=== PATIENT | male | born 1970 | race Caucasian/White ===

== ENCOUNTER → 2017-11-26 14:30 | Outpatient (REF) | payer OTHER, SELFPAY ==
[2017-11-26 17:28] LABS: Amphetamine/Metha Screen,Urine Negative ng/mL (<1000); Barbiturates Screen,Urine Negative ng/mL (<200); Benzodiazepines Screen,Urine Positive ng/mL (200); Cannabinoid Screen,Urine Negative ng/mL (<50); Cocaine Screen,Urine Negative ng/g (<300); Methadone Screen,Urine Negative ng/mL (<300); Opiate Screen,Urine Negative ng/mL (<300); Phencyclidine Screen,Urine Negative ng/mL (<25)
== END ==
LOC: LAB 14:30
PROVIDERS: Visit Provider Emergency Medicine
DX: Z79.899 Other long term (current) drug therapy (principal)
CPT/HCPCS: 80305

== ENCOUNTER → 2018-02-22 15:15 | Outpatient (REF) | payer OTHER, SELFPAY ==
[2018-02-22 19:32] LABS: Amphetamine/Metha Screen,Urine Negative ng/mL (<1000); Barbiturates Screen,Urine Negative ng/mL (<200); Benzodiazepines Screen,Urine Negative ng/mL (200); Cannabinoid Screen,Urine Negative ng/mL (<50); Cocaine Screen,Urine Negative ng/g (<300); Methadone Screen,Urine Negative ng/mL (<300); Opiate Screen,Urine Negative ng/mL (<300); Phencyclidine Screen,Urine Negative ng/mL (<25)
== END ==
LOC: LAB 15:15
PROVIDERS: Visit Provider Emergency Medicine
DX: Z79.899 Other long term (current) drug therapy (principal)
CPT/HCPCS: 80305

== ENCOUNTER → 2018-05-20 16:03 | Outpatient (REF) | payer OTHER, SELFPAY ==
[2018-05-20 17:04] LABS: Basophils # 0.1 K/mm3 (0-0.2); Basophils % 1.1 % (0.1-2.0); Eosinophils # 0.2 K/mm3 (0.0-0.4); Eosinophils % 2.3 % (0.1-12.0); Hematocrit 51.9 % (42.0-52.0); Hemoglobin 16.8 g/dL (14.1-18.0); Lymphocytes # 2.9 K/mm3 (0.7-4.5); Mean Corpuscular HGB Conc 32.3 g/dL (31.8-35.4); Mean Corpuscular Hemoglobin 30.3 pg (27.0-31.2); Mean Corpuscular Volume 93.7 fl (80-94); Mean Platelet Volume 7.9 fl (7.4-10.4); Monocytes # 0.4 K/mm3 (0.1-1.0); Monocytes % 4.3 % (1.7-9.3); Neutrophils # 5.3 K/mm3 (1.8-7.8); Neutrophils % 59.3 % (37.0-80.0); Platelet Count 239 K/mm3 (142-424); Red Blood Count 5.54 M/mm3 (4.60-6.20); Red Cell Distribution Width 12.2 % (11.5-17.5); White Blood Count 8.9 K/mm3 (4.8-10.8)
[2018-05-20 17:37] LABS: Amphetamine/Metha Screen,Urine Negative ng/mL (<1000); Barbiturates Screen,Urine Negative ng/mL (<200); Benzodiazepines Screen,Urine Positive ng/mL (<200); Cannabinoid Screen,Urine Negative ng/mL (<50); Cocaine Screen,Urine Negative ng/mL (<300); Methadone Screen,Urine Negative ng/mL (<300); Opiate Screen,Urine Negative ng/mL (<300); Phencyclidine Screen,Urine Negative ng/mL (<25)
[2018-05-20 17:52] LABS: Alanine Aminotransferase 88 U/L (12-78); Albumin Level 4.4 gm/dL (3.4-5.0); Albumin/Globulin Ratio 1.1 (1.1-1.8); Alkaline Phosphatase 113 U/L (46-116); Anion Gap 16.3 mEq/L (5-15); Aspartate Amino Transferase 40 U/L (15-37); Bilirubin,Total 0.4 mg/dL (0.2-1.0); Blood Urea Nitrogen 14 mg/dL (7-18); Calcium 9.6 mg/dL (8.5-10.1); Carbon Dioxide 24 mmol/L (21.0-32.0); Chloride 99 mmol/L (98-107); Creatinine,Serum 1.22 mg/dL (0.70-1.30); Estimated Glomerular Filt Rate 64 ml/min (>60); Free T4 (Free Thyroxine) 0.82 ng/dl (0.76-1.46); GFR (African American) 77 ML/MIN (>60); Globulin 4.1 gm/dl (1.3-3.2); Potassium 4.3 mmoL/L (3.5-5.1); Sodium 135 mmol/L (136-145); Thyroid Stimulating Hormone 25.17 uIU/ml (0.358-3.740); Total Protein,Serum 8.5 gm/dL (6.4-8.2)
[2018-05-20 17:58] LABS: Glucose 416 mg/dL (74-106)
[2018-05-24 19:21] LABS: PSA, Free 0.15 ng/mL; Prostate Specific Ag 0.6 ng/mL (0.0-4.0)
== END ==
LOC: LAB 16:03
PROVIDERS: Visit Provider Emergency Medicine
DX: E03.9 Hypothyroidism, unspecified (principal); I10 Essential (primary) hypertension; Z79.899 Other long term (current) drug therapy; R68.89 Other general symptoms and signs
CPT/HCPCS: 80053; 80305; 84153; 84154; 84439; 84443; 85025

== ENCOUNTER → 2018-05-30 09:35 | Outpatient (CLI) | payer OTHER, SELFPAY ==
[2018-05-30 10:00] LABS: Glucose,Fasting 483 mg/dL (60-105)
[2018-05-30 10:25] LABS: Hemoglobin A1C 9.8 % (0.0-7.0)
== END ==
PROVIDERS: Visit Provider Physician Assistant
DX: R73.9 Hyperglycemia, unspecified (principal)
CPT/HCPCS: 36415; 82947; 83036

== ENCOUNTER → 2018-08-10 13:38 | Outpatient (REF) | payer OTHER, SELFPAY ==
[2018-08-10 18:19] LABS: Basophils # 0.1 K/mm3 (0-0.2); Basophils % 0.5 % (0.1-2.0); Eosinophils # 0.5 K/mm3 (0.0-0.4); Eosinophils % 5.4 % (0.1-12.0); Hematocrit 46.6 % (42.0-52.0); Hemoglobin 14.8 g/dL (14.1-18.0); Lymphocytes # 2.2 K/mm3 (0.7-4.5); Lymphocytes % 23.5 K/mm3 (10-50); Mean Corpuscular HGB Conc 31.8 g/dL (31.8-35.4); Mean Corpuscular Hemoglobin 30.2 pg (27.0-31.2); Mean Corpuscular Volume 94.9 fl (80-94); Mean Platelet Volume 8.8 fl (7.4-10.4); Monocytes # 0.6 K/mm3 (0.1-1.0); Neutrophils % 64.6 % (37.0-80.0); Platelet Count 305 K/mm3 (142-424); Red Blood Count 4.91 M/mm3 (4.60-6.20); Red Cell Distribution Width 13.2 % (11.5-17.5); White Blood Count 9.4 K/mm3 (4.8-10.8)
[2018-08-10 18:36] LABS: Alanine Aminotransferase 117 U/L (12-78); Albumin Level 4.1 gm/dL (3.4-5.0); Albumin/Globulin Ratio 1.1 (1.1-1.8); Alkaline Phosphatase 91 U/L (46-116); Anion Gap 15.2 mEq/L (5-15); Aspartate Amino Transferase 60 U/L (15-37); Bilirubin,Total 0.5 mg/dL (0.2-1.0); Blood Urea Nitrogen 8 mg/dL (7-18); Calcium 9.5 mg/dL (8.5-10.1); Carbon Dioxide 25 mmol/L (21.0-32.0); Chloride 104 mmol/L (98-107); Chol/HDL Ratio 5.9 (1-3.5); Cholesterol 223 mg/dL (140-200); Creatinine,Serum 0.85 mg/dL (0.70-1.30); Estimated Glomerular Filt Rate 97 ml/min (>60); Free T4 (Free Thyroxine) 1.07 ng/dl (0.76-1.46); GFR (African American) 117 ML/MIN (>60); Globulin 3.8 gm/dl (1.3-3.2); Glucose 175 mg/dL (74-106); HDL Cholesterol 38 mg/dL (27-67); LDL Cholesterol 165 mg/dL (0-130); Potassium 4.2 mmoL/L (3.5-5.1); Sodium 140 mmol/L (136-145); Thyroid Stimulating Hormone 3.38 uIU/ml (0.358-3.740); Total Protein,Serum 7.9 gm/dL (6.4-8.2); Triglycerides 102 mg/dL (30-200); VLDL Cholesterol 20 mg/dL (0-40)
[2018-08-10 18:38] LABS: Amphetamine/Metha Screen,Urine Negative ng/mL (<1000); Barbiturates Screen,Urine Negative ng/mL (<200); Benzodiazepines Screen,Urine Positive ng/mL (<200); Cannabinoid Screen,Urine Negative ng/mL (<50); Cocaine Screen,Urine Negative ng/mL (<300); Methadone Screen,Urine Negative ng/mL (<300); Opiate Screen,Urine Negative ng/mL (<300); Phencyclidine Screen,Urine Negative ng/mL (<25)
[2018-08-10 19:07] LABS: Hemoglobin A1C 10.1 % (0.0-7.0)
== END ==
LOC: LAB 13:38
PROVIDERS: Visit Provider Emergency Medicine
DX: Z79.899 Other long term (current) drug therapy (principal); I10 Essential (primary) hypertension
CPT/HCPCS: 80053; 80061; 80305; 83036; 84439; 84443; 85025

== ENCOUNTER → 2018-08-12 13:44 | Outpatient (CLI) | payer OTHER, SELFPAY ==
--- NOTE | 2018-08-12 13:47 | XR_ITS ---
XR shoulder LT min 2V HISTORY: ITS.REASON: shoulder pain ORDERING PHYSICIAN: Angel Luis Polo MD PATIENT AGE: 48 years Comparison: None FINDINGS: No fracture or dislocation. No lytic or blastic change. There is normal mineralization. The joint spaces are well-preserved. No significant degenerative/arthritic changes. No erosive changes evident. IMPRESSION: Negative, no acute finding
== END ==
PROVIDERS: PCP Emergency Medicine; Visit Provider Emergency Medicine
DX: M25.512 Pain in left shoulder (principal)
CPT/HCPCS: 73030

== ENCOUNTER → 2020-01-04 16:38 | Outpatient (CLI) | payer OTHER, SELFPAY ==
[2020-01-04 16:56] LABS: Basophils # 0.1 K/mm3 (0-0.2); Basophils % 1.3 % (0.1-2.0); Eosinophils # 0.2 K/mm3 (0.0-0.4); Eosinophils % 2.1 % (0.1-12.0); Hematocrit 46.7 % (42.0-52.0); Hemoglobin 15.6 g/dL (14.1-18.0); Lymphocytes # 2.9 K/mm3 (0.7-4.5); Lymphocytes % 26.2 % (10-50); Mean Corpuscular HGB Conc 33.4 g/dL (31.8-35.4); Mean Corpuscular Hemoglobin 30.4 pg (27.0-31.2); Mean Corpuscular Volume 91.1 fl (80-94); Mean Platelet Volume 8.8 fl (7.4-10.4); Monocytes # 0.6 K/mm3 (0.1-1.0); Monocytes % 5.2 % (1.7-9.3); Neutrophils # 7.3 K/mm3 (1.8-7.8); Neutrophils % 65.2 % (37.0-80.0); Platelet Count 320 K/mm3 (142-424); Red Blood Count 5.12 M/mm3 (4.60-6.20); Red Cell Distribution Width 12.3 % (11.5-17.5); White Blood Count 11.1 K/mm3 (4.8-10.8)
[2020-01-04 17:10] LABS: Chloride 103 mmol/L (98-107)
[2020-01-04 17:11] LABS: Potassium 4.5 mmoL/L (3.5-5.1); Sodium 138 mmol/L (136-145)
[2020-01-04 17:13] LABS: Alanine Aminotransferase 52 U/L (12-78); Anion Gap 18.5 mEq/L (5-15); Aspartate Amino Transferase 35 U/L (17-59); Blood Urea Nitrogen 23 mg/dl (9-20); Carbon Dioxide 21 mmol/L (22.0-30.0); Cholesterol 154 mg/dl (140-200); Estimated Glomerular Filt Rate 103 ml/min (>60); GFR (African American) 125 ML/MIN (>60); Triglycerides 148 mg/dl (30-150); VLDL Cholesterol 30 mg/dL (0-40)
[2020-01-04 17:14] LABS: Albumin Level 5.1 g/dl (3.5-5.0); Albumin/Globulin Ratio 1.5 (1.1-1.8); Alkaline Phosphatase 86 U/L (38-126); Bilirubin,Total 0.3 mg/dl (0.2-1.3); Calcium 10.1 mg/dl (8.4-10.2); Globulin 3.4 g/dL (1.3-3.2); Glucose 309 mg/dl (74-100); HDL Cholesterol 31 mg/dl (40-60); Total Protein,Serum 8.5 g/dl (6.3-8.2)
[2020-01-04 17:28] LABS: T4 (Thyroxine) 9.1 ug/dl (5.53-11.0)
[2020-01-04 17:32] LABS: Direct LDL Cholesterol 100.01 mg/dL (100-129)
[2020-01-06 08:31] LABS: Vitamin D 25 Hydroxy 16.3 ng/mL (30.0-100.0)
[2020-01-06 10:20] LABS: Creatinine, Urine 78.2 mg/dL (Not Estab.)
[2020-01-06 14:22] LABS: C-Peptide 3.8 ng/mL (1.1-4.4)
== END ==
PROVIDERS: Visit Provider Nurse Practitioner Family
DX: E11.9 Type 2 diabetes mellitus without complications (principal); Z79.4 Long term (current) use of insulin; E55.9 Vitamin D deficiency, unspecified; Z79.899 Other long term (current) drug therapy
CPT/HCPCS: 80053; 80061; 82043; 82570; 82652; 83036; 84436; 84443; 84681; 85025

== ENCOUNTER → 2020-03-18 06:45 | Outpatient (CLI) | payer OTHER, SELFPAY ==
--- NOTE | 2020-03-18 06:47 | CA_ITS ---
APPROVED REPORT EXAM: Comprehensive 2D, Doppler, and color-flow Echocardiogram Furnace Installer: Debbie Farias RVT Ht: 6 ft 0 in Wt: 221lbs BSA: 2.22 BP: 160/90 mmHg Indications: MURMUR,SOA,CP,SMOKER,HEP C,TACHYCARDIA,SOA,HTN,HLD 2D Dimensions LVOT 1.55 cm (M/F) 1.5-2.5 M-Mode Dimensions RVDd 2.74 cm (0.9-2.6) LVDd 4.71 cm (3.5-5.7) LVDs 3.23 cm (3.5-5.7) IVSd 0.91 cm (0.6-1.1) PWd 0.53 cm (0.6-1.1) EF (Teich) 59.30% FS 31.40% EDV (Teich) 102.90 mL ESV (Teich) 41.90 mL LV Diastology E/A Ratio 0.69 Aortic Valve LVOT Max 228.00 (70-110 cm/s) LVOT VTI 48.97 cm Mitral Valve MV A Velocity 100.00 (40-130 cm/s) Left Ventricle Left atrium is mildly enlarged, left ventricle is normal size, mild concentric left ventricular hypertrophy, visually estimated ejection fraction 55% with no regional wall motion abnormality. Grade 1 diastolic dysfunction seen without tissue Doppler evidence of raise left atrial pressure. Right Ventricle Right atrium and right ventricular normal size and contractility. Aortic Valve Aortic valve is thickened and calcified with reduction in leaflet mobility, the mean gradient across valve is 18 mmHg, valve area 1.5 cm??? represents mild aortic stenosis, there is no significant aortic insufficiency. Mitral Valve Mitral valve leaflets are minimally thickened, there is mild mitral regurgitation. Tricuspid Valve Tricuspid valve is grossly normal, there is mild tricuspid regurgitation, tricuspid regurgitation jet velocity is inadequate for calculation of the right ventricular systolic pressure. Pulmonic Valve Pulmonic valve is poorly visualized. Great Vessels Aortic root is normal size. Pericardium No significant pericardial effusion noted. Conclusion 1. Mildly enlarged left atrium, normal left ventricular size, mild concentric left ventricular hypertrophy, visually estimated ejection fraction 55% with no regional wall motion abnormality, grade 1 diastolic dysfunction seen without tissue Doppler evidence of raise left atrial pressure. 2. Thickened and calcified aortic valve with mean gradient across valve of 18 mmHg, valve area of 1.5 centimeters square represents mild aortic stenosis, there is no significant aortic insufficiency. 3. Mild mitral and tricuspid regurgitation. 4. No significant pericardial effusion noted. Electronically signed by : Tyler Lopez, 03/18/2020 19:54:21
--- NOTE | 2020-03-18 06:47 | CA_ITS ---
APPROVED REPORT Exam: Pharmacologic Technologist: Sondra Overton Ht: 6 ft 0 in Wt: 210 lbs BSA: 2.18 m2 HR: 82 bpm BP: 113/74 mmHg Indications: Heart murmur,Chest pain, Shortness of Breath Medical History Medications: Lisinopril,,,,, Levothyroxine,,,,, Aspirin,,,,, Vitamin D3,,,,, Atorvastatin,,,,, INSULIN,,,,, BisOPROLOL,,,,, Ergocalciferol,,,,, Stress Test Details Test: LEXISCAN HR Resting HR: 85 bpm Max Heart Rate (APMHR): 172 bpm Max HR Achieved: 105 bpm Target HR (85% APMHR): 146 bpm % of APMHR: 61 Recovery HR: 86 bpm BP Resting BP: 113.0/74.0 mmHg Max BP: 137.0/90.0 mmHg Recovery BP: 137.0/90.0 mmHg ECG Clinical Exercise duration: 04:00 min Highest Stage Achieved: Stress ECG Conclusion Resting ECG: Sinus rhythm Lexiscan portion completed. Patient complained of shortness of breath during peak infusion. Symptoms: Shortness of breath during peak infusion. Resolved in recovery. No chest pain. Arrhythmias/Ectopy: Occasional PVC ST-T Changes: Less than 1.[address] depression. Conclusion: Images to follow. Test Summary . . Myoview Injected . . . Stop exercise at 04:00 . . . . . Electronically signed by : Tyler Lopez, 03/18/2020 20:17:50
--- NOTE | 2020-03-18 06:47 | NM_ITS ---
APPROVED REPORT Exam: Nuclear Stress Test Indication: SOB, HTN, DM, High cholesterol, Tobacco use, Family history Patient Location: Outpatient Stress Tech: Sondra Overton [place] Tech:Kenna Aguilera, ARRT, RT (R)(N) Ht: 6 ft 0 in Wt: 210 lbs HR: 82 bpm BP: 113/74 mmHg BSA: 2.18 m2 History: SOB, HTN, DM, High cholesterol, Tobacco use, Family history Procedure: Patient received a 0.4 mg of intravenous Lexiscan, resting heart rate 82 bpm, resting blood pressure 113/74 mmHg, with Lexiscan maximum heart rate achived was 94 bpm which is Less than 85 % of the maximum predicted heart rate and blood pressure was 134/92 mmHg. With Lexiscan, patient denied any complaint of chest pain. Electrocardiogram Resting electrocardiogram showed sinus rhythm, with Lexiscan there is less than 1.[address] segment depression noted from the baseline EKG. The EKG portion of the Lexiscan is nondiagnostic. Cardiac Stress and Resting SPECT Images: Cardiac Stress and Resting SPECT images were obtained using technetium 99m Myoview 30.6 mCi stress and 10.47 mCi at rest. Gated SPECT with analysis of segmental wall motion and calculation of the ejection fraction also done. Cardiac stress and resting SPECT images show decrease tracer activity in the anterior, apical and anteroseptal wall which improves on the resting images suggestive of reversible ischemia, computer derived ejection fraction is 55% with no regional wall motion abnormality, right ventricle is normal size and contractility. Conclusion: 1. The EKG portion of the Lexiscan Myoview is nondiagnostic. 2. Scintigraphic evidence of mild reversible ischemia involving the anterior, apical and anteroseptal wall, computer derived ejection fraction is 55% with no regional wall motion abnormality, right ventricle is normal size and contractility. 3. Abnormal Lexiscan Myoview study. Electronically signed by : Tyler Lopez, 03/18/2020 20:20:37
--- NOTE | 2020-03-18 09:07 | HMH.ITSHM ---
Current Home Medications as stated by this patient Dayo Ramírez or auto claim representative. []LISINOPRIL LEVOTHYROXINE INSULIN VITAMIN D2 VITAMIN D3 BISOPROLOL ATORVASTATIN ASA
== END ==
PROVIDERS: PCP Nurse Practitioner Family; Visit Provider Urology
DX: R01.1 Cardiac murmur, unspecified (principal); R07.9 Chest pain, unspecified; R06.00 Dyspnea, unspecified; E78.5 Hyperlipidemia, unspecified; I10 Essential (primary) hypertension
CPT/HCPCS: 78452; 93017; 93306; A9502; J2785

== ENCOUNTER 2020-06-14 08:39 | Day surgery (SDC) | payer OTHER, SELFPAY ==
[2020-06-14] VITALS (9 sets, daily range): BP systolic 85–118; BP diastolic 49–77; PULSE 57–68; RESP 16–20; TEMP 36.6–36.7; O2SAT 92–97; BMI 29.8
--- NOTE | 2020-06-14 | IR_ITS ---
APPROVED REPORT PROCEDURES Left heart catheterization Left ventriculogram Selective coronary angiogram INDICATION Abnormal stress test, Angina pectoris, Informed consent was obtained prior to the procedure. TECHNIQUE One percent lidocaine used to anesthetize the right anterior aspect of the wrist. The right radial artery was accessed via the Seldinger technique. A 6 Chinese sheath was placed in the right radial artery. 2.5 mg of verapamil, 800 mcg of nitroglycerin, 1mg Lidocaine and 5000 U Heparin were given through the arterial sheath. The trap catheter was also used to perform left heart catheterization, left ventriculogram and selective coronary angiogram. At the end of the procedure the sheath was removed good hemostasis was achieved using Traclet band, patient was transferred to the postop holding area in stable condition. ANGIOGRAPHIC RESULTS The left main artery Normal The left anterior descending artery Normal The circumflex artery Nondominant normal The right coronary artery Dominant and has proximal concentric 30% stenosis with mild 10% mid vessel luminal irregularities The ARELLANO ventriculogram reveals Normal 65% The left ventricular end-diastolic pressure 10 mmHg IMPRESSION Mild to moderate disease in the proximal dominant right coronary Normal ejection fraction Normal left ventricular end-diastolic pressure PLAN 1. Evaluation of noncardiac chest pain 2. Medical management with risk factor modification Electronically signed by : Allan Gore, 06/14/2020 11:54:48
[2020-06-14 09:10] LABS: Basophils # 0.1 K/mm3 (0-0.2); Basophils % 1.1 % (0.1-2.0); Eosinophils # 0.3 K/mm3 (0.0-0.4); Eosinophils % 3.2 % (0.1-12.0); Hematocrit 44.3 % (42.0-52.0); Hemoglobin 14.8 g/dL (14.1-18.0); Lymphocytes # 2.2 K/mm3 (0.7-4.5); Lymphocytes % 27.4 % (10-50); Mean Corpuscular HGB Conc 33.4 g/dL (31.8-35.4); Mean Corpuscular Hemoglobin 31.1 pg (27.0-31.2); Mean Corpuscular Volume 93.1 fl (80-94); Mean Platelet Volume 7.5 fl (7.4-10.4); Monocytes # 0.5 K/mm3 (0.1-1.0); Monocytes % 6.1 % (1.7-9.3); Neutrophils # 5.1 K/mm3 (1.8-7.8); Neutrophils % 62.1 % (37.0-80.0); Platelet Count 266 K/mm3 (142-424); Red Blood Count 4.76 M/mm3 (4.60-6.20); Red Cell Distribution Width 12.5 % (11.5-17.5); White Blood Count 8.2 K/mm3 (4.8-10.8)
[2020-06-14 09:14] LABS: Chloride 104 mmol/L (98-107); Sodium 138 mmol/L (136-145)
[2020-06-14 09:15] LABS: Potassium 4.5 mmoL/L (3.5-5.1)
[2020-06-14 09:18] LABS: Anion Gap 13.5 mEq/L (5-15); Blood Urea Nitrogen 23 mg/dl (9-20); Calcium 9.7 mg/dl (8.4-10.2); Carbon Dioxide 25 mmol/L (22.0-30.0); Creatinine Clearance Estimated 140 mL/min (50-200); Estimated Glomerular Filt Rate 90 ml/min (>60); GFR (African American) 109 ML/MIN (>60); Glucose 144 mg/dl (74-100)
== END 2020-06-14 14:26 | disposition home or self-care (01) ==
LOC: CATHLAB 08:40
PROVIDERS: PCP Nurse Practitioner Family; Visit Provider Internal Medicine
DX: I25.118 Atherosclerotic heart disease of native coronary artery with other forms of angina pectoris (principal); E11.9 Type 2 diabetes mellitus without complications; E03.9 Hypothyroidism, unspecified; E78.5 Hyperlipidemia, unspecified; Z79.4 Long term (current) use of insulin; Z79.82 Long term (current) use of aspirin; Z72.0 Tobacco use; I35.0 Nonrheumatic aortic (valve) stenosis; I10 Essential (primary) hypertension; Z79.899 Other long term (current) drug therapy
CPT/HCPCS: 80048; 85025; 93458; 99152; C1725; C1769; J1644; Q9967

== ENCOUNTER → 2021-08-12 14:04 | Outpatient (CLI) | payer OTHER, SELFPAY ==
[2021-08-12 14:28] LABS: Alanine Aminotransferase 102 U/L (12-78); Albumin Level 4.7 g/dl (3.5-5.0); Albumin/Globulin Ratio 1.3 (1.1-1.8); Alkaline Phosphatase 149 U/L (38-126); Anion Gap 14.8 mEq/L (5-15); Aspartate Amino Transferase 73 U/L (17-59); Bilirubin,Total 0.3 mg/dl (0.2-1.3); Blood Urea Nitrogen 21 mg/dl (9-20); Calcium 10.5 mg/dl (8.4-10.2); Carbon Dioxide 27 mmol/L (22.0-30.0); Chloride 95 mmol/L (98-107); Chol/HDL Ratio 6.4 (1-3.5); Cholesterol 212 mg/dl (140-200); Estimated Glomerular Filt Rate 102 ml/min (>60); GFR (African American) 124 ML/MIN (>60); Globulin 3.5 g/dL (1.3-3.2); HDL Cholesterol 33 mg/dl (40-60); Potassium 4.8 mmoL/L (3.5-5.1); Sodium 132 mmol/L (136-145); Total Protein,Serum 8.2 g/dl (6.3-8.2); Triglycerides 222 mg/dl (30-150); VLDL Cholesterol 44 mg/dL (0-40)
[2021-08-12 14:30] LABS: Basophils # 0.1 K/mm3 (0-0.2); Basophils % 1.1 % (0.1-2.0); Eosinophils # 0.2 K/mm3 (0.0-0.4); Eosinophils % 1.6 % (0.1-12.0); Hematocrit 48.4 % (42.0-52.0); Hemoglobin 15.6 g/dL (14.1-18.0); Lymphocytes # 1.9 K/mm3 (0.7-4.5); Mean Corpuscular HGB Conc 32.1 g/dL (31.8-35.4); Mean Corpuscular Hemoglobin 31.1 pg (27.0-31.2); Mean Platelet Volume 10.7 fl (7.4-10.4); Monocytes # 0.6 K/mm3 (0.1-1.0); Monocytes % 5.8 % (1.7-9.3); Neutrophils # 6.8 K/mm3 (1.8-7.8); Neutrophils % 71.5 % (37.0-80.0); Platelet Count 299 K/mm3 (142-424); White Blood Count 9.5 K/mm3 (4.8-10.8)
[2021-08-12 14:41] LABS: Direct LDL Cholesterol 121.93 mg/dL (100-129)
[2021-08-12 14:47] LABS: Free T4 (Free Thyroxine) 0.66 ng/dl (0.78-2.19)
[2021-08-12 14:50] LABS: Glucose 664 mg/dl (74-100)
[2021-08-12 15:00] LABS: Prostate Specific Ag Screen 0.6 ng/ml (0.0-4.0)
[2021-08-14 06:11] LABS: Hep A Ab, IgM Negative (Negative); Hepatitis B Core Antibody IgM Negative (Negative); Hepatitis B Surface Antigen Negative (Negative); Hepatitis C Antibody >11.0 s/co ratio (0.0-0.9)
[2021-08-15 21:11] LABS: HCV Genotype Charge YES; Hepatitis C Genotype 1a (.)
== END ==
PROVIDERS: Visit Provider Emergency Medicine
DX: E11.9 Type 2 diabetes mellitus without complications (principal); E55.9 Vitamin D deficiency, unspecified; R74.8 Abnormal levels of other serum enzymes; Z79.4 Long term (current) use of insulin; Z12.5 Encounter for screening for malignant neoplasm of prostate
CPT/HCPCS: 80053; 80061; 80074; 82306; 83036; 84439; 84443; 85025; 87522; 87902; G0103

== ENCOUNTER → 2021-09-29 14:57 | Outpatient (CLI) | payer OTHER, SELFPAY ==
[2021-09-29 19:13] LABS: Amphetamine/Metha Screen,Urine Negative ng/ml (<1000); Barbiturates Screen,Urine Negative ng/ml (<200)
[2021-09-29 19:14] LABS: Benzodiazepines Screen,Urine Negative ng/ml (<200); Cannabinoid Screen,Urine Positive ng/ml (<50)
[2021-09-29 19:15] LABS: Cocaine Screen,Urine Negative ng/ml (<300)
[2021-09-29 19:16] LABS: Methadone Screen,Urine Negative ng/ml (<300); Opiate Screen,Urine Negative ng/ml (<300)
[2021-09-29 19:17] LABS: Phencyclidine Screen,Urine Negative ng/ml (<25)
== END ==
PROVIDERS: Visit Provider Emergency Medicine
DX: G62.9 Polyneuropathy, unspecified (principal)
CPT/HCPCS: 80305

== ENCOUNTER → 2021-11-11 14:14 | Outpatient (CLI) | payer OTHER, SELFPAY ==
[2021-11-11 15:15] LABS: Thyroid Stimulating Hormone 0.86 uIU/mL (0.465-4.68)
[2021-11-11 16:11] LABS: Free T4 (Free Thyroxine) 1.37 ng/dl (0.78-2.19)
[2021-11-11 16:31] LABS: Hemoglobin A1C 6.2 % (4.0-6.0)
== END ==
PROVIDERS: Visit Provider Emergency Medicine
DX: E03.9 Hypothyroidism, unspecified (principal); G62.9 Polyneuropathy, unspecified
CPT/HCPCS: 83036; 84439; 84443

== ENCOUNTER → 2022-02-06 10:36 | Outpatient (CLI) | payer OTHER, SELFPAY ==
[2022-02-06 19:15] LABS: Amphetamine/Metha Screen,Urine Negative ng/ml (<1000)
[2022-02-06 19:16] LABS: Barbiturates Screen,Urine Negative ng/ml (<200)
[2022-02-06 19:17] LABS: Benzodiazepines Screen,Urine Positive ng/ml (<200); Cannabinoid Screen,Urine Positive ng/ml (<50)
[2022-02-06 19:18] LABS: Cocaine Screen,Urine Negative ng/ml (<300)
[2022-02-06 19:19] LABS: Methadone Screen,Urine Negative ng/ml (<300); Opiate Screen,Urine Negative ng/ml (<300)
[2022-02-06 19:20] LABS: Phencyclidine Screen,Urine Negative ng/ml (<25)
== END ==
PROVIDERS: Visit Provider Emergency Medicine
DX: Z79.899 Other long term (current) drug therapy (principal)
CPT/HCPCS: 80305

== ENCOUNTER 2022-10-08 12:01 | Emergency (ER) | payer OTHER, SELFPAY ==
[2022-10-08 12:02] VITALS: BP 108/78; PULSE 77; RESP 18; TEMP 36.6; O2SAT 98; BMI 27.8
--- NOTE | 2022-10-08 12:17 | PC.NURSE ---
PT TO XR
--- NOTE | 2022-10-08 12:18 | XR_ITS ---
FINAL REPORT CLINICAL HISTORY: FALL, left/mid upper rib pain FINDINGS: 3 views of the left ribs were obtained. There is a fracture of the left 5th rib. There is no pleural fluid collection or pneumothorax. A single view of the chest demonstrates no acute cardiopulmonary process. IMPRESSION: Left 5th rib fracture without pneumothorax. Reviewed, Interpreted and Dictated by Alberto Atkinson MD Transcribed by Harris Barrett Authenticated and [facility]
--- NOTE | 2022-10-08 12:35 | PC.NURSE ---
PT RETURNED FROM XR
--- NOTE | 2022-10-08 12:38 | PC.NURSE ---
DR DIANE AT BEDSIDE FOR EVALUATION
[2022-10-08 12:42] VITALS: BP 111/79; PULSE 75; RESP 20; O2SAT 97
--- NOTE | 2022-10-08 12:48 | HMH.EDGENADL ---
Discharge Plan Disposition Patient Disposition: Home, Self-Care Condition: Good Prescriptions Prescriptions: New methocarbamol 750 mg tablet 750 mg PO Q6H Qty: 30 0RF lidocaine [Lidoderm] 5 % adhesive patch,medicated 1 patch topical DAILY Qty: 30 0RF Rx Instructions: leave on most painful area for up to 12 hrs ketorolac 10 mg tablet 10 mg PO QID 5 Days Qty: 20 0RF No Action insulin asp prt-insulin aspart [Novolog Mix 70-30FlexPen U-100] 100 unit/mL (70-30) insulin pen 25 unit SQ BID Qty: 15 2RF clonazepam [Klonopin] 0.5 mg tablet 0.5 mg PO QID Qty: 120 2RF gabapentin 600 mg tablet 600 mg PO TID Qty: 90 2RF (DME) OneTouch Ultra Test Strip See Rx Instructions .ROUTE .COMPLEX Qty: 100 3RF Dose Instruction: TEST BLOOD SUGAR DAILY DIRECTED Rx Instructions: TEST BLOOD SUGAR DAILY DIRECTED (DME) lancets [OneTouch Delica Plus Lancet] 33 gauge misc See Rx Instructions .ROUTE .COMPLEX Qty: 100 3RF Dose Instruction: TEST BLOOD SUGAR DAILY DIRECTED Rx Instructions: TEST BLOOD SUGAR DAILY DIRECTED atorvastatin 20 mg tablet See Rx Instructions .ROUTE .COMPLEX Qty: 30 3RF Dose Instruction: TAKE ONE TABLET BY MOUTH ONCE A DAY FOR CHOLESTEROL Rx Instructions: TAKE ONE TABLET BY MOUTH ONCE A DAY FOR CHOLESTEROL levothyroxine 125 mcg tablet See Rx Instructions .ROUTE .COMPLEX Qty: 30 3RF Dose Instruction: TAKE 1 TABLET BY MOUTH ONCE A DAY FOR THYROID Rx Instructions: TAKE 1 TABLET BY MOUTH ONCE A DAY FOR THYROID ergocalciferol (vitamin D2) 1,250 mcg (50,000 unit) capsule See Rx Instructions .ROUTE .COMPLEX Qty: 4 3RF Dose Instruction: TAKE 1 CAPSULE BY MOUTH EVERY WEEK Rx Instructions: TAKE 1 CAPSULE BY MOUTH EVERY WEEK aspirin 81 mg tablet,delayed release (DR/EC) See Rx Instructions .ROUTE .COMPLEX Qty: 30 3RF Dose Instruction: TAKE ONE TABLET BY MOUTH ONCE A DAY Rx Instructions: TAKE ONE TABLET BY MOUTH ONCE A DAY cholecalciferol (vitamin D3) 25 mcg (1,000 unit) tablet See Rx Instructions .ROUTE .COMPLEX Qty: 30 3RF Dose Instruction: TAKE 1 TABLET BY MOUTH ONCE A DAY Rx Instructions: TAKE 1 TABLET BY MOUTH ONCE A DAY amlodipine 5 mg tablet See Rx Instructions .ROUTE .COMPLEX Qty: 30 3RF Dose Instruction: TAKE ONE TABLET BY MOUTH ONCE A DAY Rx Instructions: TAKE ONE TABLET BY MOUTH ONCE A DAY metformin 1,000 mg tablet See Rx Instructions .ROUTE .COMPLEX Qty: 60 3RF Dose Instruction: TAKE ONE TABLET BY MOUTH 2 TIMES A DAY Rx Instructions: TAKE ONE TABLET BY MOUTH 2 TIMES A DAY bisoprolol fumarate 10 mg tablet See Rx Instructions .ROUTE .COMPLEX Qty: 30 3RF Dose Instruction: TAKE ONE TABLET BY MOUTH ONCE A DAY Rx Instructions: TAKE ONE TABLET BY MOUTH ONCE A DAY (DME) insulin syringe-needle U-100 1 EACH syringe See Rx Instructions .Route .COMPLEX Rx Instructions: USE FOR INSULIN INJECTION DIRECTED Referrals Follow up/Referrals: Angel Luis Polo MD [Primary Care Provider] - See instructions Clinical Impressions Clinical Impression: Closed rib fracture Instructions Patient Instructions: DI for Rib Fracture, How to Use an Incentive Spirometer, Ketorolac, Methocarbamol, Lidocaine Transdermal Patch Discharge ED Provider: Pedro Carlos Adult HPI General Chief complaint: PAIN Stated complaint: Fall@home 10/07 LT side rib pain Time Seen by Provider: 10/08/22 12:18 Mode of Arrival: Ambulatory Limitations: No Limitations Description of Symptoms (Recalled from ER Triage Doc. by RN): PT REPORTS FALL FROM STANDING, LANDING ON LEFT SIDE. REPORTS LEFT SIDED RIB PAIN History of Present Illness HPI narrative: 52-year-old male, presents with left rib pain status post mechanical fall where he landed on his left side. Denies head injury, loss of consciousness, denies anti
--- NOTE | 2022-10-08 13:39 | PC.NURSE ---
DR. DIANE AT BEDSIDE TO UPDATE PT ON POC
[2022-10-08 13:47] VITALS: BP 123/93; PULSE 71; RESP 18; TEMP 36.6; O2SAT 98
== END 2022-10-08 13:50 | disposition home or self-care (01) ==
PROVIDERS: Emergency Provider Emergency Medicine; PCP Emergency Medicine
DX: S22.32XA Fracture of one rib, left side, initial encounter for closed fracture (principal); W18.30XA Fall on same level, unspecified, initial encounter
CPT/HCPCS: 71101; 96372; 99283

== ENCOUNTER → 2022-10-26 22:25 | Outpatient (CLI) | payer OTHER, SELFPAY ==
[2022-10-26 17:44] LABS: Basophils # 0.1 K/mm3 (0-0.2); Basophils % 1.5 % (0.1-2.0); Eosinophils # 1.3 K/mm3 (0.0-0.4); Eosinophils % 16.2 % (0.1-12.0); Hematocrit 37.7 % (42.0-52.0); Hemoglobin 12.4 g/dL (14.1-18.0); Lymphocytes # 3.1 K/mm3 (0.7-4.5); Lymphocytes % 38.7 % (10-50); Mean Corpuscular Hemoglobin 30.8 pg (27.0-31.2); Mean Corpuscular Volume 93.4 fl (80-94); Mean Platelet Volume 9.1 fl (7.4-10.4); Monocytes # 0.4 K/mm3 (0.1-1.0); Monocytes % 5.3 % (1.7-9.3); Neutrophils # 3.1 K/mm3 (1.8-7.8); Neutrophils % 38.3 % (37.0-80.0); Platelet Count 324 K/mm3 (142-424); Red Blood Count 4.04 M/mm3 (4.60-6.20); Red Cell Distribution Width 12.8 % (11.5-17.5)
[2022-10-26 18:03] LABS: Alanine Aminotransferase 27 U/L (12-78); Albumin Level 4.1 g/dl (3.5-5.0); Albumin/Globulin Ratio 1.2 (1.1-1.8); Alkaline Phosphatase 107 U/L (38-126); Anion Gap 12.2 mEq/L (5-15); Aspartate Amino Transferase 39 U/L (17-59); Bilirubin,Total 0.5 mg/dl (0.2-1.3); Blood Urea Nitrogen 13 mg/dl (9-20); Calcium 9.5 mg/dl (8.4-10.2); Carbon Dioxide 29 mmol/L (22.0-30.0); Chloride 104 mmol/L (98-107); Chol/HDL Ratio 7.4 (1-3.5); Cholesterol 119 mg/dl (140-200); Estimated Glomerular Filt Rate 53 ml/min (>60); GFR (African American) 65 ML/MIN (>60); Globulin 3.5 g/dL (1.3-3.2); Glucose 158 mg/dl (74-100); HDL Cholesterol 16 mg/dl (40-60); Potassium 4.2 mmoL/L (3.5-5.1); Sodium 141 mmol/L (136-145); Total Protein,Serum 7.6 g/dl (6.3-8.2); Triglycerides 131 mg/dl (30-150); VLDL Cholesterol 26 mg/dL (0-40)
[2022-10-26 18:20] LABS: 25-OH Vitamin D, Total 59.5 ng/mL (30-100)
[2022-10-26 18:24] LABS: Hemoglobin A1C 6.2 % (4.0-6.0)
[2022-10-26 18:34] LABS: Thyroid Stimulating Hormone 1.39 uIU/mL (0.465-4.68)
== END ==
PROVIDERS: Visit Provider Emergency Medicine
DX: E10.65 Type 1 diabetes mellitus with hyperglycemia (principal); E55.9 Vitamin D deficiency, unspecified; Z79.84 Long term (current) use of oral hypoglycemic drugs
CPT/HCPCS: 80053; 80061; 82306; 83036; 84439; 84443; 85025

== ENCOUNTER → 2022-11-24 07:12 | Outpatient (CLI) | payer OTHER, SELFPAY ==
--- NOTE | 2022-11-24 07:12 | NM_ITS ---
APPROVED REPORT Exam: Nuclear Stress Test Indication: Chest pain, SOB, HTN, DM, High cholesterol, Tobacco use, Family history Patient Location: Outpatient Stress Tech: Sondra Overton [place] Tech:Kenna Aguilera, ARRT, RT (R)(N) Ht: 5 ft 11 in Wt: 195 lbs HR: 75 bpm BP: 108/73 mmHg BSA: 2.09 m2 TID: 1.18 BMI: 27.1 History: Chest pain, SOB, HTN, DM, High cholesterol, Tobacco use, Family history Procedure: Patient received a 0.4 mg of intravenous Lexiscan, resting heart rate 75 bpm, resting blood pressure 108/73 mmHg, with Lexiscan maximum heart rate achived was 87 bpm which is Less than 85 % of the maximum predicted heart rate and blood pressure was 108/73 mmHg. With Lexiscan, patient denied any complaint of chest pain. Electrocardiogram Resting electrocardiogram shows sinus rhythm, with Lexiscan there is less than 1.[address] segment depression noted from the baseline EKG. The EKG portion of the Lexiscan is nondiagnostic. Cardiac Stress and Resting SPECT Images: Cardiac Stress and Resting SPECT images were obtained using technetium 99m Myoview 31.9 mCi stress and 10.30 mCi at rest. Gated SPECT for analysis of segmental wall motion and calculation of the ejection fraction also done. Prone images were also obtained. Cardiac stress and resting SPECT images show uniform myocardial activity without segmental perfusion abnormality, computer derived ejection fraction is 54% with no regional wall motion abnormality, right ventricle is normal size and contractility. Conclusion: 1. The EKG portion of the Lexiscan is nondiagnostic. 2. No scintigraphic evidence of reversible ischemia seen, computer derived ejection fraction is 54% with no regional wall motion abnormality, right ventricle is normal size and contractility. 3. Normal Lexiscan Myoview study. Electronically signed by : Tyler Lopez MD 11/25/2022 06:23:42
--- NOTE | 2022-11-24 07:39 | CA_ITS ---
APPROVED REPORT EXAM: Comprehensive 2D, Doppler, and color-flow Echocardiogram Healthcare Analyst: Debbie Farias RVT Ht: 6 ft 0 in Wt: 193lbs BSA: 2.10 BP: 129/83 mmHg Indications: SOA,MILD ,HTN,HLD,SMOKER,MURMUR,TACHYCARDIA 2D Dimensions LVOT 2.22 cm (M/F) 1.5-2.5 LA Volume 28.70 mL LA Volume Index 13.67 mL/m2 (M/F) 16-34 M-Mode Dimensions RVDd 2.75 cm (0.9-2.6) LA Diam 3.25 cm (1.9-4.0) LVDd 4.47 cm (3.5-5.7) Ao Diam 4.02 cm (2.0-3.7) LVDs 3.04 cm (3.5-5.7) IVSd 1.50 cm (0.6-1.1) PWd 0.72 cm (0.6-1.1) EF (Teich) 60.20% FS 32.00% EDV (Teich) 91.00 mL TAPSE 1.93 (<1.7) ESV (Teich) 36.20 mL LV Diastology E Decel Time 327.00 (160-240 msec) E/A Ratio 0.8 MED E' 5.80 (< 7 cm/sec) E'/MED E' Ratio 15.84 (>14) LAT E' 9.70 (<10 cm/sec) E/LAT E' Ratio 9.47 (>14) Aortic Valve LVOT Max 88.00 (70-110 cm/s) LVOT VTI 21.51 cm AoV Peak Arya. 395.00 (50-130 cm/s) AO Peak GR. 62.50 mmHg AO Mean GR. 37.80 (<5 mmHg) AO VTI 85.18 (18-25 cm) LEWIS (VTI) 0.98 (2.5-4.5 cm2) Mitral Valve MV E Max Arya. 92.00 (40-130 cm/s) MV A Velocity 111.00 (40-130 cm/s) E/A Ratio 0.83 MV Decel. Time 327.00 (160-240 ms) MV PHT 96.00 ms Pulmonary Valve PV Peak Velocity 70.00 (50-150 cm/s) Tricuspid Valve TR P. Velocity 297.00 cm/s RAP Estimate 10.00 mmHg RVSP 45.20 mmHg Left Ventricle Left atrium is mildly enlarged, left ventricle is normal size mild concentric left ventricular hypertrophy, estimated ejection fraction 55% no regional wall motion abnormality, grade 1 diastolic dysfunction seen without tissue Doppler evidence of raise left atrial pressure. Right Ventricle Right atrium and right ventricle are mildly enlarged with normal contractility. Aortic Valve Aortic valve is thickened and calcified with severe restriction in the leaflet mobility, the mean gradient across aortic valve is 37 mmHg, valve area 0.8 cm??? represents severe aortic stenosis, there is trace aortic insufficiency. Mitral Valve Mitral valve grossly normal, there is trace mitral regurgitation. Tricuspid Valve Tricuspid valve grossly normal, there is trace tricuspid regurgitation. Pulmonic Valve Pulmonic valve is poorly visualized. Great Vessels Aortic root is normal size. Inferior vena cava is poorly visualized. Pericardium No significant pericardial effusion noted. Conclusion 1. Mild biatrial enlargement, normal left ventricular size, mild concentric left ventricular hypertrophy, estimated ejection fraction 55% with no regional wall motion abnormality, grade 1 diastolic dysfunction seen without tissue Doppler evidence of raise left atrial pressure. 2. Mildly enlarged right ventricle with normal contractility. 3. Thickened and calcified aortic valve with severe aortic stenosis, valve area 0.8 cm???, there is trace aortic insufficiency. 4. No significant pericardial effusion noted. 5. Inferior vena cava is poorly visualized. 6. Trace mitral and tricuspid regurgitation. Electronically signed by : Tyler Lopez MD 11/25/2022 05:54:16
--- NOTE | 2022-11-24 08:54 | HMH.ITSHM ---
Current Home Medications as stated by this patient Dayo Ramírez or electroplating sales representative. []METFORMIN LISINOPRIL LEVOTHYROXINE GABAPENTIN VITAMIN D2 CLONAZEPAM VITAMIN D3 BUPRENORPHINE BISOPROLOL ATORVASTATIN ASA AMLODIPINE INSULIN
--- NOTE | 2022-11-24 09:55 | CA_ITS ---
APPROVED REPORT Exam: Pharmacologic Technologist: Sondra Overton Ht: 6 ft 0 in Wt: 193 lbs BSA: 2.10 m2 HR: 88 bpm BP: 101/72 mmHg Indications: Shortness of Air Medical History Medications: Amlodipine,,,,, Lisinopril,,,,, Levothyroxine,,,,, Aspirin,,,,, Metformin,,,,, Gabapentin,,,,, Vitamin D3,,,,, Atorvastatin,,,,, Suboxone,,,,, KloNOPIN,,,,, BisOPROLOL,,,,, Vitamin D2,,,,, Stress Test Details Test: LEXISCAN Reason for pharmacologic stress test: changed from exercise stress test due to inability to reach target heart rate. HR Resting HR: 75 bpm Max Heart Rate (APMHR): 169.915966 bpm Max HR Achieved: 87 bpm Target HR (85% APMHR): 143.445884 bpm % of APMHR: 51.48 Recovery HR: 83 bpm BP Resting BP: 104.0/75.0 mmHg Max BP: 108/73 mmHg Recovery BP: 104.0/75.0 mmHg ECG Resting ECG: Normal sinus rhythm, LVH Clinical Exercise duration: 04:00 min Highest Stage Achieved: Exercise capacity: 1.0 METs Stress ECG Conclusion Switched from exercise due to inadequate heart rate response, on Bisoprolol. Symptoms: Shortness of air, no chest pain. Arrhythmias/Ectopy: None ST-T Changes: No significant changes. Conclusion: Unremakable Lexiscan stress. Myoview images reported spearately. Test Summary REST . . . . . . . Resting REST 02:07 . . 75 . . . . Stage 1 . . . . . . . Myoview Injected Stage 1 01:00 . . 86 . . . . Stage 2 01:00 . . 86 . 108/ 73 . . Stage 3 01:00 . . 87 . 103/ 72 . . Stage 4 01:00 . . 86 . 98/ 75 . Stop exercise at 04:00 RECOVERY 01:00 . . 84 . . . . RECOVERY 02:00 . . 84 . 101/ 74 . . RECOVERY 03:00 . . 83 . 95/ 73 . . RECOVERY 04:00 . . 79 . 104/ 75 . . Electronically signed by : Tyler Lopez MD 11/25/2022 06:20:37
== END ==
PROVIDERS: PCP Emergency Medicine; Visit Provider Physician Assistant
DX: R55 Syncope and collapse (principal); I35.0 Nonrheumatic aortic (valve) stenosis; I25.10 Atherosclerotic heart disease of native coronary artery without angina pectoris
CPT/HCPCS: 78452; 93017; 93306; A9502; J2785

== ENCOUNTER 2023-02-17 09:05 | Day surgery (SDC) | payer OTHER, SELFPAY ==
[2023-02-17] VITALS (11 sets, daily range): BP systolic 107–128; BP diastolic 71–79; PULSE 50–71; RESP 15–20; TEMP 36.1–36.8; O2SAT 96–100; BMI 25.6
--- NOTE | 2023-02-17 07:10 | IR_ITS ---
APPROVED REPORT Patient Location: Outpatient PROCEDURES Selective coronary angiogram INDICATION Preoperative evaluation for severe aortic stenosis Informed consent was obtained prior to the procedure. COMPLICATIONS None Estimated Blood Loss: Less than 10 mls TECHNIQUE One percent lidocaine used to anesthetize the right anterior aspect of the wrist. The right radial artery was accessed via the Seldinger technique. A 6 Barbadian sheath was placed in the right radial artery. 150 mg magnesium sulfate, 800 mcg of nitroglycerin, 1mg Lidocaine and 5000 U Heparin were given through the arterial sheath. The papa catheter was also used to perform left heart catheterization, left ventriculogram and selective coronary angiogram. At the end of the procedure the sheath was removed good hemostasis was achieved using Traclet band, patient was transferred to the postop holding area in stable condition. ANGIOGRAPHIC RESULTS The left main artery Normal The left anterior descending artery Mild proximal mid vessel 10% luminal irregularities The circumflex artery Mild 10% luminal regularities The right coronary artery Large dominant with a proximal 10 to 20% stenosis and diffuse mild luminal regularities The ARELLANO ventriculogram reveals Not performed The left ventricular end-diastolic pressure Not measured IMPRESSION Mild nonflow limiting coronary artery disease PLAN 1. Proceed with evaluation for TAVR Electronically signed by : Allan Gore MD 02/17/2023 15:03:32
[2023-02-17 09:41] LABS: Chloride 105 mmol/L (98-107)
[2023-02-17 09:42] LABS: Potassium 3.5 mmoL/L (3.5-5.1); Sodium 141 mmol/L (136-145)
[2023-02-17 09:45] LABS: Anion Gap 9.5 mEq/L (5-15); Blood Urea Nitrogen 9 mg/dl (9-20); Calcium 8.7 mg/dl (8.4-10.2); Carbon Dioxide 30 mmol/L (22.0-30.0); Creatinine Clearance Estimated 132 mL/min (50-200); Estimated Glomerular Filt Rate 102 ml/min (>60); GFR (African American) 123 ML/MIN (>60); Glucose 90 mg/dl (74-100)
[2023-02-17 09:54] LABS: Basophils # 0.1 K/mm3 (0-0.2); Basophils % 0.9 % (0.1-2.0); Eosinophils # 0.4 K/mm3 (0.0-0.4); Eosinophils % 6.3 % (0.1-12.0); Hematocrit 36.4 % (42.0-52.0); Lymphocytes # 2.4 K/mm3 (0.7-4.5); Lymphocytes % 43.5 % (10-50); Mean Corpuscular HGB Conc 33.1 g/dL (31.8-35.4); Mean Corpuscular Hemoglobin 29.9 pg (27.0-31.2); Mean Corpuscular Volume 90.3 fl (80-94); Mean Platelet Volume 8.7 fl (7.4-10.4); Monocytes # 0.3 K/mm3 (0.1-1.0); Neutrophils # 2.4 K/mm3 (1.8-7.8); Neutrophils % 43.4 % (37.0-80.0); Platelet Count 159 K/mm3 (142-424); Red Blood Count 4.03 M/mm3 (4.60-6.20); Red Cell Distribution Width 13.5 % (11.5-17.5); White Blood Count 5.5 K/mm3 (4.8-10.8)
== END 2023-02-17 14:53 | disposition home or self-care (01) ==
PROVIDERS: PCP Emergency Medicine; Visit Provider Internal Medicine
DX: I35.0 Nonrheumatic aortic (valve) stenosis (principal); I25.10 Atherosclerotic heart disease of native coronary artery without angina pectoris; F17.210 Nicotine dependence, cigarettes, uncomplicated; E11.9 Type 2 diabetes mellitus without complications; Z79.4 Long term (current) use of insulin; I10 Essential (primary) hypertension; E03.9 Hypothyroidism, unspecified; Z79.899 Other long term (current) drug therapy
CPT/HCPCS: 80048; 85025; 93454; 99152; 99153; C1725; C1769; J1644; Q9967

== ENCOUNTER → 2023-05-12 14:35 | Outpatient (CLI) | payer OTHER, SELFPAY ==
[2023-05-12 13:15] LABS: Phencyclidine Screen,Urine Negative ng/ml (<25)
[2023-05-12 13:22] LABS: Amphetamine/Metha Screen,Urine Negative ng/ml (<1000); Barbiturates Screen,Urine Negative ng/ml (<200)
[2023-05-12 13:23] LABS: Benzodiazepines Screen,Urine Positive ng/ml (<200); Cannabinoid Screen,Urine Negative ng/ml (<50)
[2023-05-12 13:26] LABS: Opiate Screen,Urine Negative ng/ml (<300)
[2023-05-12 13:27] LABS: Cocaine Screen,Urine Negative ng/ml (<300)
[2023-05-12 13:36] LABS: Methadone Screen,Urine Negative ng/ml (<300)
== END ==
PROVIDERS: PCP Emergency Medicine; Visit Provider Emergency Medicine
DX: F41.9 Anxiety disorder, unspecified (principal)
CPT/HCPCS: 80305

== ENCOUNTER → 2023-09-08 13:26 | Outpatient (CLI) | payer BC, SELFPAY ==
[2023-09-08 18:06] LABS: Benzodiazepines Screen,Urine Positive ng/ml (<200)
[2023-09-08 18:07] LABS: Amphetamine/Metha Screen,Urine Negative ng/ml (<1000)
[2023-09-08 18:08] LABS: Barbiturates Screen,Urine Negative ng/ml (<200); Methadone Screen,Urine Negative ng/ml (<300)
[2023-09-08 18:09] LABS: Cannabinoid Screen,Urine Positive ng/ml (<50)
[2023-09-08 18:10] LABS: Cocaine Screen,Urine Negative ng/ml (<300); Opiate Screen,Urine Negative ng/ml (<300)
[2023-09-08 18:11] LABS: Phencyclidine Screen,Urine Negative ng/ml (<25)
== END ==
PROVIDERS: PCP Emergency Medicine; Visit Provider Emergency Medicine
DX: Z79.899 Other long term (current) drug therapy (principal)
CPT/HCPCS: 80305

== ENCOUNTER → 2023-09-21 07:45 | Outpatient (CLI) | payer BC, SELFPAY ==
--- NOTE | 2023-09-21 07:47 | CA_ITS ---
APPROVED REPORT EXAM: Comprehensive 2D, Doppler, and color-flow Echocardiogram Oil Developer: Kalpana Chakraborty RT(R) Ht: 6 ft 0 in Wt: 200lbs BSA: 2.13 BP: 88/64 mmHg Indications: Severe echo 11/2022, CAD, smoker, HTN, DM, hyperlipidemia. 2D Dimensions LVOT 2.03 cm (M/F) 1.5-2.5 LVEF (Corley's) 49.70 % M: 52 - 72 LV Volume 149.70 mL M: 62 - 150 LV Volume Index 70.28 mL/m2 M: 34 - 74 LA Volume 60.90 mL LA Volume Index 28.59 mL/m2 (M/F) 16-34 M-Mode Dimensions RVDd 2.89 cm (0.9-2.6) LA Diam 4.41 cm (1.9-4.0) LVDd 5.47 cm (3.5-5.7) LVDs 4.22 cm (3.5-5.7) IVSd 1.25 cm (0.6-1.1) PWd 0.93 cm (0.6-1.1) EF (Teich) 45.40% FS 22.90% EDV (Teich) 145.60 mL TAPSE 2.11 (<1.7) ESV (Teich) 79.50 mL LV Diastology E Decel Time 240.00 (160-240 msec) E/A Ratio 1.1 MED E' 6.30 (< 7 cm/sec) E'/MED E' Ratio 22.02 (>14) LAT E' 7.50 (<10 cm/sec) E/LAT E' Ratio 18.49 (>14) Aortic Valve LVOT Max 92.00 (70-110 cm/s) LVOT VTI 20.25 cm AoV Peak Arya. 442.00 (50-130 cm/s) AO Peak GR. 78.20 mmHg AO Mean GR. 38.20 (<5 mmHg) AO VTI 90.79 (18-25 cm) LEWIS (VTI) 0.72 (2.5-4.5 cm2) Mitral Valve MV E Max Arya. 139.00 (40-130 cm/s) MV A Velocity 124.00 (40-130 cm/s) E/A Ratio 1.12 MV Decel. Time 240.00 (160-240 ms) MV PHT 70.00 ms Tricuspid Valve TR P. Velocity 317.00 cm/s RAP Estimate 10.00 mmHg RVSP 50.20 mmHg Left Ventricle The left ventricle is normal size. The left ventricular systolic function is normal. The left ventricular ejection fraction is within the normal range. There is marked increase in LV wall thickness (IVSd 1.5 cm). There is normal LV segmental wall motion. Grade 2 diastolic dysfunction is present. LVEF is 55%. Right Ventricle The right ventricle is normal size. The right ventricular systolic function is normal. Atria Left atrium is mildly dilated. Right atrium is mildly dilated. There is no Doppler evidence of interatrial shunt. Aortic Valve The aortic valve is moderately thickened. Severe aortic stenosis. Peak velocity 4.4 m/s. Mean AV gradient is 40 mmHg. Max AV gradient is 82 mmHg. LEWIS is 0.7 cm2. Mild aortic regurgitation. Mitral Valve The mitral valve leaflets are mildly thickened. No evidence of mitral valve stenosis. Moderate mitral regurgitation. Tricuspid Valve The tricuspid valve leaflets are thin and pliable. Moderate tricuspid regurgitation. Pulmonic Valve The pulmonary valve is normal in structure. Mild pulmonic regurgitation. Great Vessels The aortic root is normal in size. The ascending aorta is normal in size. IVC is normal in size and collapses >50% with inspiration. Pericardium There is no pericardial effusion. Other Information Study Quality: Fair Conclusion Normal biventricular systolic function. Markedly increased LV wall thickness IVSd 1.5 cm. Biatrial dilation. Severe , mild AI. Moderate MR. Moderate TR. Further evaluation for severe and other valvular diseases is recommended. Referral to CT surgery is suggested. Also due to asymmetric increase in LV wall thickness, further evaluation for HCM is recommended with cardiac MRI (HCM protocol). Electronically signed by : Anjali Olson MD 09/26/2023 23:50:23
[2023-09-21 08:37] LABS: Basophils % 0.5 % (0.1-2.0); Eosinophils # 0.1 K/mm3 (0.0-0.4); Eosinophils % 1.2 % (0.1-12.0); Hematocrit 24.3 % (42.0-52.0); Hemoglobin 8.5 g/dL (14.1-18.0); Lymphocytes # 1.3 K/mm3 (0.7-4.5); Lymphocytes % 29.2 % (10-50); Mean Corpuscular Hemoglobin 30.8 pg (27.0-31.2); Mean Corpuscular Volume 88.2 fl (80-94); Mean Platelet Volume 8.7 fl (7.4-10.4); Monocytes # 0.3 K/mm3 (0.1-1.0); Monocytes % 5.8 % (1.7-9.3); Neutrophils # 2.8 K/mm3 (1.8-7.8); Neutrophils % 63.2 % (37.0-80.0); Platelet Count 143 K/mm3 (142-424); Red Blood Count 2.75 M/mm3 (4.60-6.20); Red Cell Distribution Width 13.5 % (11.5-17.5); White Blood Count 4.5 K/mm3 (4.8-10.8)
[2023-09-21 10:05] LABS: Chloride 107 mmol/L (98-107); Potassium 4.2 mmoL/L (3.5-5.1); Sodium 137 mmol/L (136-145)
[2023-09-21 10:07] LABS: Blood Urea Nitrogen 48 mg/dl (9-20); Estimated Glomerular Filt Rate 7 ml/min (>60); GFR (African American) 8 ML/MIN (>60)
[2023-09-21 10:08] LABS: Alanine Aminotransferase 15 U/L (12-78); Albumin Level 3.3 g/dl (3.5-5.0); Albumin/Globulin Ratio 0.8 (1.1-1.8); Alkaline Phosphatase 65 U/L (38-126); Anion Gap 12.2 mEq/L (5-15); Aspartate Amino Transferase 24 U/L (17-59); Bilirubin,Total 0.2 mg/dl (0.2-1.3); Carbon Dioxide 22 mmol/L (22.0-30.0); Chol/HDL Ratio 8.5 (1-3.5); Cholesterol 94 mg/dl (140-200); Globulin 4.2 g/dL (1.3-3.2); Glucose 112 mg/dl (74-100); HDL Cholesterol 11 mg/dl (40-60); Total Protein,Serum 7.5 g/dl (6.3-8.2); Triglycerides 157 mg/dl (30-150); VLDL Cholesterol 31 mg/dL (0-40)
[2023-09-21 10:20] LABS: Direct LDL Cholesterol 58.22 mg/dL (100-129)
[2023-09-21 10:27] LABS: 25-OH Vitamin D, Total 65.9 ng/mL (30-100)
[2023-09-21 10:42] LABS: Thyroid Stimulating Hormone 3.29 uIU/mL (0.465-4.68)
[2023-09-21 10:47] LABS: Hemoglobin A1C 5.7 % (4.0-6.0)
[2023-09-21 14:05] LABS: Prostate Specific Ag Screen 0.3 ng/ml (0.0-4.0)
== END ==
PROVIDERS: PCP Emergency Medicine; Visit Provider Emergency Medicine
DX: I35.0 Nonrheumatic aortic (valve) stenosis (principal); E11.9 Type 2 diabetes mellitus without complications; K59.00 Constipation, unspecified; E03.9 Hypothyroidism, unspecified; R53.83 Other fatigue; Z12.5 Encounter for screening for malignant neoplasm of prostate; Z68.27 Body mass index [BMI] 27.0-27.9, adult; Z79.84 Long term (current) use of oral hypoglycemic drugs
CPT/HCPCS: 36415; 80053; 80061; 82306; 83036; 84439; 84443; 85025; 93306; G0103